=== PATIENT | male | born 1950 | race Caucasian/White ===

== ENCOUNTER → 2017-03-26 | Outpatient (CLI) | payer MEDICARE, OTHER ==
--- NOTE | 2017-03-26 12:04 | CARD ---
MR#: [id number] Date of Study: 03/26/2017 Ordering Physician: LISE SIFUENTES, Referring Physician: LISE SIFUENTES, Tech: Sanjay Le [facility] APPROVED REPORT EXAM: Two-dimensional and M-mode echocardiogram with Doppler and color Doppler. Other Information Quality : Good INDICATION Hypertension/HCVD 2D DIMENSIONS Left Atrium(2D)4.7 (1.6-4.0cm)IVSd1.5 (0.7-1.1cm) Aortic Root(2D)2.9 (2.0-3.7cm)LVDd4.9 (3.9-5.9cm) LVOT Diameter2.0 (1.8-2.4cm)PWd1.5 (0.7-1.1cm) LVDs3.3 (2.5-4.0cm)FS (%) 33.5 % SV71.1 mlLVEF(%)62.1 (>50%) Aortic Valve AoV Peak Gil.219.0cm/sAoV VTI46.8cm AO Peak GR.19.2mmHgLVOT Peak Gil.117.4cm/s LVOT VTI 28.08cmAO Mean GR.10mmHg TERRI (VMAX)1.16gz8KZG (VTI)1.81cm2 Mitral Valve MV E Jtoqslgq26.4cm/sMV DECEL YVCO527fr MV A Dxwfmhvf12.3cm/sE/A Ratio1.2 Tricuspid Valve TR P. Xplgfrca387js/sRAP FCCILCVP4nqXa TR Peak Gr.12xoWhNEZT53reFm LEFT VENTRICLE The left ventricle is normal size. There is moderate concentric left ventricular hypertrophy. Left ve ntricle systolic function is normal. The Ejection Fraction is 60-65%. There is normal LV segmental wa ll motion. Tissue Doppler imaging reveals abnormal left ventricular diastolic dysfunction. RIGHT VENTRICLE The right ventricle is normal size. The right ventricular systolic function is normal. ATRIA The left atrium is mild to moderately dilated. The right atrium size is normal. The interatrial septu m is intact with no evidence for an atrial septal defect or patent foramen ovale as noted on 2-D or D oppler imaging. AORTIC VALVE The aortic valve is mildly calcified. Doppler and Color Flow revealed no significant aortic regurgita tion. There is no significant aortic valvular stenosis. MITRAL VALVE The mitral valve is calcified but opens well. There is no evidence of mitral valve prolapse. There is no mitral valve stenosis. Doppler and Color-flow revealed mild mitral regurgitation. TRICUSPID VALVE The tricuspid valve is normal in structure and function. Doppler and Color Flow revealed mild tricusp id regurgitation. There is no pulmonary hypertension. The PA pressure was estimated at 28 mmHg. There is no tricuspid valve prolapse or vegetation. There is no tricuspid valve stenosis. PULMONIC VALVE Doppler and Color Flow revealed mild pulmonic valvular regurgitation. There is no pulmonic valvular s tenosis. GREAT VESSELS The aortic root is normal in size. The ascending aorta is normal in size. The IVC is normal in size a nd collapses >50% with inspiration. PERICARDIAL EFFUSION There is no pleural effusion. There is no evidence of significant pericardial effusion. Critical Notification Critical Value: No <Conclusion> Left ventricle systolic function is normal. The Ejection Fraction is 60-65%. There is normal LV segmental wall motion. Signed by : Sixto Alcantara, Electronically Approved : 03/26/2017 12:04:11
== END | disposition home or self-care (01) ==
LOC: ECHO 11:01
PROVIDERS: ATTEND Family Medicine
DX: I08.1 Rheumatic disorders of both mitral and tricuspid valves (principal)
CPT/HCPCS: 93306

== ENCOUNTER → 2018-04-07 | Outpatient (CLI) | payer MEDICARE, OTHER ==
--- NOTE | 2018-04-07 17:47 | RAD ---
Left lower extremity venous doppler ultrasound History: Left leg pain Comparison: None Findings: Multiple grayscale, color, and duplex spectral analysis sonographic images were acquired of the left lower extremity veins to evaluate for the presence of DVT. There is normal phasicity. Normal compression, color-flow, and augmentation is demonstrated from the left common femoral to the popliteal veins. There is normal color flow of the proximal greater saphenous vein. There is normal color flow of segments of the calf veins. Impression: 1. There is no evidence of deep venous thrombosis from the left common femoral to popliteal veins. Electronically signed by: Deshawn Gotti MD (04/07/2018 5:43 PM) [facility]
== END | disposition home or self-care (01) ==
LOC: DXRAD 17:06
PROVIDERS: ATTEND Family Medicine
DX: M79.662 Pain in left lower leg (principal)
CPT/HCPCS: 93971

== ENCOUNTER → 2018-10-31 | Outpatient (CLI) | payer MEDICARE, OTHER ==
--- NOTE | 2018-10-31 11:42 | RAD ---
EXAM: Abdomen sonogram. HISTORY: Elevated liver enzymes laboratory values. TECHNIQUE: Sonographic imaging of the abdomen was performed. COMPARISON: None. FINDINGS: The liver is normal in size. No focal hepatic lesion is seen. The gallbladder is unremarkable. The common bile duct is normal in caliber. The kidneys are normal in size. There is a 2.0 cm simple appearing left renal cyst. The pancreas is obscured due to bowel gas. The spleen, aorta and inferior cava are unremarkable IMPRESSION: 1. Small simple appearing left renal cyst. 2. Limited evaluation of the pancreas due to bowel gas. 3. Otherwise, unremarkable abdomen sonogram. Electronically signed by: Barbara Rincon MD (10/31/2018 11:39 AM) [facility]
== END | disposition home or self-care (01) ==
LOC: US 08:35
PROVIDERS: ATTEND Family Medicine
DX: N28.1 Cyst of kidney, acquired (principal)
CPT/HCPCS: 76700

== ENCOUNTER → 2019-04-23 | Outpatient (CLI) | payer MEDICARE, OTHER ==
--- NOTE | 2019-04-23 12:14 | RAD ---
DOPPLER CAROTID BILAT History: Stenosis Multiple grayscale, color, and duplex spectral analysis waveform sonographic images were acquired of the carotid, subclavian, and vertebral arteries. Comparison: None Findings: RIGHT SIDE: Peak systolic flow velocity of the distal CCA is 61 cm/sec. Peak systolic flow velocity of the ICA is 138 cm/sec. The ICA/CCA ratio is 1.9. Peak end diastolic flow velocity of the ICA is 43 cm/sec. The peak systolic velocity of the ECA is 72 cm/sec. Mild plaque formation is identified. LEFT SIDE: Peak systolic flow velocity of the distal CCA is 62 cm/sec. Peak systolic flow velocity of the ICA is 81 cm/sec. The ICA/CCA ratio is 1.3. Peak end diastolic flow velocity of the ICA is 23 cm/sec. Peak systolic flow velocity of the ECA is 81 cm/sec. Mild plaque formation is identified. Vertebral arteries: Right vertebral artery is not visualized. Left vertebral artery demonstrates antegrade flow. Impression: 1. Atherosclerosis of the internal carotid arteries with velocities consistent with 50-69% stenosis on the right and less than 50% stenosis on the left. 2. The right vertebral artery is not visualized, and could be hypoplastic or occluded. CTA or MRA could be obtained for further evaluation as clinically warranted. Patent left vertebral artery. PQRS Compliance Statement - Stenosis calculations for carotid ultrasound studies are derived from validated velocity criteria which are known to correlate with the NASCET methodology. Electronically signed by: Deshawn Johnson MD (04/23/2019 12:11 PM) [facility]
== END | disposition home or self-care (01) ==
LOC: US 10:41
PROVIDERS: ATTEND Family Medicine
DX: I65.23 Occlusion and stenosis of bilateral carotid arteries (principal)
CPT/HCPCS: 93880

== ENCOUNTER → 2020-01-01 | Outpatient (CLI) | payer MEDICARE, OTHER ==
--- NOTE | 2020-01-01 16:24 | RAD ---
3 view study of the right knee Clinical indications: Right knee pain. FINDINGS: No acute fracture or dislocation or lytic process is seen. There is moderate joint space narrowing and spurring of the medial tibiofemoral joint compartment with mild subchondral sclerosis. The patellofemoral joint compartment is unremarkable. Minimal right knee joint effusion is seen radiographically. In the lateral view, small punctate loose bodies are present within the posterior tibial femoral joint compartment. 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 Electronically signed by: Juan Davis MD (01/01/2020 4:22 PM) [id number]
== END | disposition home or self-care (01) ==
LOC: DXRAD 16:03
PROVIDERS: ATTEND Family Medicine
DX: M17.11 Unilateral primary osteoarthritis, right knee (principal); M25.461 Effusion, right knee; M76.9 Unspecified enthesopathy, lower limb, excluding foot
CPT/HCPCS: 73562

== ENCOUNTER 2020-10-16 16:15 | Emergency (ER) | payer MEDICARE, OTHER ==
[~2020-10-16] VITALS: Ht 177.8 cm; Wt 117.0 kg
[2020-10-16] MEDS ORDERED: NALOXONE 2 MG/2 ML DISP.SYRIN. IV ONE (16:30)
[2020-10-16] MEDS ORDERED: IV NORMAL SALINE 1,000ML 1,000 ML IV ONE (16:30)
--- NOTE | 2020-10-16 16:51 | PHYS DOC ---
Past History Additional Past Medical Histor: unknown (MEGHA COSTA DO) Past Surgical History: Other Additional Past Surgical Histo: unknown (MEGHA COSTA DO) General Adult EDM: Chief Complaint: Respiratory distress HPI: HPI: 69-year-old male presents via EMS for drug overdose. The entire history is provided by EMS because the patient will answer my questions. The patient was reported to be "out of it" all day at home. He started Zanaflex last night for a torn meniscus. EMS arrived and the patient was unresponsive but breathing. They gave him 2 mg of Narcan and he seemed to react. On arrival to the emergency room he does not answer questions. He will arouse to sternal rub. (MEGHA COSTA DO) Review of Systems: Review of Systems: Unable to perform due to patient condition (MEGHA COSTA DO) Current Medications: Current Meds: Current Medications Medications (Trade) Dose Ordered Sig/Rob Start Time Stop Time Status Last Admin Dose Admin Naloxone HCl (Narcan) 2 mg 1X ONCE 10/16/20 16:30 10/16/20 16:31 UNV Sodium Chloride 1,000 ml @ 1,000 mls/hr 1X ONCE 10/16/20 16:30 10/16/20 17:29 UNV 10/16/20 16:30 1,000 MLS/HR (MEGHA COSTA DO) Physical Exam: PE: Constitutional: Well developed, well nourished, morbidly obese, mild acute distress. [] HENT: Normocephalic, atraumatic, bilateral external ears normal, oropharynx moist, no oral exudates, nose normal. [] Eyes: PERRLA, EOMI, conjunctiva normal, no discharge. [] Neck: Normal range of motion, no tenderness, supple, no stridor. [] Cardiovascular: Heart rate 96, regular rhythm, no murmur [] Lungs & Thorax: Bilateral crackles throughout [] Abdomen: Bowel sounds normal, distended but pliable, no tenderness, no masses, no pulsatile masses. [] Skin: Warm, dry, no erythema, no rash. [] Back: No tenderness, no CVA tenderness. [] Extremities: No tenderness, no cyanosis, no clubbing, ROM intact, no edema. [] Neurologic: Arousable to sternal rub. [] Psychologic: Unable to assess [] (MEGHA COSTA DO) Current Patient Data: Vital Signs: Vital Signs Date Time Temp Pulse Resp B/P (MAP) Pulse Ox O2 Delivery O2 Flow Rate FiO2 10/16/20 16:21 124 30 96/55 94 Room Air (MEGHA COSTA DO) EKG: EKG: Irregular rhythm, rate 120, normal axis, no ST elevation or depression, A. fib. [] (MEGHA COSTA DO) Radiology/Procedures: Radiology/Procedures: [] Impressions: EXAM: XR CHEST 1V 10/16/2020 4:29 PM CLINICAL INDICATION: Crackles COMPARISON: None TECHNIQUE: AP view the chest FINDINGS: The cardiac silhouette is prominent. Lungs are hypoexpanded. There are bilateral interstitial and alveolar opacities. No pleural effusion or pneumothorax. IMPRESSION: Cardiomegaly and probable mild pulmonary edema. Electronically signed by: Flores Baez MD (10/16/2020 5:09 PM) [id number] DICTATED AND SIGNED BY: FLORES BAEZ MD DATE: 10/16/20 1708 CC: LISE SIFUENTES MD; MEGHA COSTA DO ~MTH0 0 (MEGHA COSTA DO) Heart Score: C/O Chest Pain: N/A Risk Factors: Risk Factors: DM, Current or recent (<one month) smoker, HTN, HLP, family history of CAD, obesity. Risk Scores: Score 0 - 3: 2.5% MACE over next 6 weeks - Discharge Home Score 4 - 6: 20.3% MACE over next 6 weeks - Admit for Clinical Observation Score 7 - 10: 72.7% MACE over next 6 weeks - Early Invasive Strategies (MEGHA CSOTA DO) Course & Med Decision Making: Course & Med Decision Making Pertinent Labs and Imaging studies reviewed. (See chart for details) The patient would barely wake up to verbal stimuli. He would arouse to sternal rub but would not be awake enough to answer any questions. We given 2 more milligrams of Narcan with no real effect. Chest x-ray is concerning for fluid overload and pneumonia. This could be COVID-19. I have ordered 40 of Lasix, a gram of Rocephin, 500 of azithromycin IV. We have sent lactic acid and blood cultures. While the patient is maintaining good saturations with 2 L nasal cannula, given the look of his lungs and respirations we will place him on BiPAP. Ba has been inserted. Fingerstick blood sugar 250. The patient's EKG shows atrial fibrillation at a rate of 120. I will try 10 mg of Cardizem IV to see if this improves his heart rate. I am hesitant to be any more aggressive due to his low blood pressure. Normalizing his heart rate may help with his pressure. He is also getting a liter of fluid and likely more given the dark color of his urine. I am signing the patient out to Dr. Yeung at 1800. [] (MEGHA COSTA DO) Course & Med Decision Making Patient care handed off to me at checkout. Patient critically ill with altered mental status and GCS 12 with some confusion, NIH hard to obtain but does not seem to want to move his left leg. Patient definitely has some confusion as at times he can remember his but other times he cannot. Vital signs notable for A. fib RVR running anywhere from 100-130 however pressures with maps in the 50s. Patient started on some light pressure support with low-dose epinephrine to give cardiac output support and help with perfusion, with no phenylephrine available. Patient also started on BiPAP trial given patient's tachypnea and coarse breath sounds with some mild pulmonary edema on imaging. After some time with epinephrine, small fluid bolus and CPAP patient was able to be weaned from CPAP back down to nasal cannula to liters and epinephrine turned off for a trial. Patient maintained maps in the 70s with heart rate around 110, 96% on 2 L breathing about 25 times a minute. Mentation slightly improved with patient being a little more alert but still has some confusion and GCS 12. Given patient's elevated white count, elevated lactate and bands on laboratory analysis, cultures were obtained and given broad-spectrum antibiotics concerning for cocommitment sepsis. Urinalysis brown and cloudy with many bacteria but hard to analyze which could be a potential source of infection. Patient critically ill with multiorgan system dysfunction given altered mental status and probable neurologic deficit, elevated troponin and apparent decrease in cardiac output and edema, elevated creatinine and brown urine, elevated LFTs and probable sepsis/infection. Discussed all findings with family and recommended admission to NICU. [facility] in [place] with no ICU beds. Tried [facility], [facility] and [facility] who were also out of ICU beds. Dr. Dickson at accepted. Critical care time 60 minutes (ISI YEUNG MD) Dragon Disclaimer: Dragon Disclaimer: This electronic medical record was generated, in whole or in part, using a voice recognition dictation system. (MEGHA COSTA DO) Departure Departure: Impression: Primary Impression: Pulmonary edema Qualified Codes: J81.0 - Acute pulmonary edema Additional Impressions: AMS (altered mental status) Qualified Codes: R40.0 - Somnolence Atrial fibrillation Qualified Codes: I48.91 - Unspecified atrial fibrillation Condition: GUARDED Referrals: LISE SIFUENTES MD (PCP) MEGHA COSTA DO Oct 16, 2020 16:51 ISI YEUNG MD Oct 16, 2020 22:17
--- NOTE | 2020-10-16 17:11 | RAD ---
EXAM: XR CHEST 1V 10/16/2020 4:29 PM CLINICAL INDICATION: Crackles COMPARISON: None TECHNIQUE: AP view the chest FINDINGS: The cardiac silhouette is prominent. Lungs are hypoexpanded. There are bilateral interstit ial and alveolar opacities. No pleural effusion or pneumothorax. IMPRESSION: Cardiomegaly and probable mild pulmonary edema. Electronically signed by: Flores Baez MD (10/16/2020 5:09 PM) [id number]
[2020-10-16] MEDS ORDERED: AZITHROMYCIN 500 MG in IV NORMAL SALINE 250ML 250 ML IV ONE (17:15)
[2020-10-16] MEDS ORDERED: IOHEXOL 350 MG/ML 100 ML VIAL. IV ONE (17:15)
[2020-10-16] MEDS ORDERED: IPRATRPIUM/ALBUTEROL 0.5/2.5MG 3 ML NEBU. NEB ONE (17:15)
[2020-10-16] MEDS ORDERED: FUROSEMIDE 40 MG/4 ML VIAL IVP ONE (17:15)
[2020-10-16] MEDS ORDERED: IV NORMAL SALINE 250ML 250 ML ONE (17:26)
[2020-10-16] MEDS ORDERED: IV NORMAL SALINE 50ML 50 ML ONE (17:26)
[2020-10-16] MEDS ORDERED: cefTRIAXone SODIUM 1 GM VIAL ONE (17:27)
[2020-10-16] MEDS ORDERED: AZITHROMYCIN 500 MG VIAL. IV ONE (17:27)
[2020-10-16] MEDS ORDERED: CONTRAST GIVEN. MC PRN (17:30)
[2020-10-16 17:58] LABS: BASO % 0 % (0-3); EOS % 0 % (0-3); HEMOGLOBIN 13.8 g/dL (13.0-17.5); LYMPH # 0.4 x10^3/uL (1.0-4.8); LYMPH % 2 % (24-48); MEAN CORPUSCULAR HEMOGLOBIN 32 pg (25-35); MEAN CORPUSCULAR HGB CONC 34 g/dL (31-37); MEAN CORPUSCULAR VOLUME 95 fL (79-100); MONO # 1.6 x10^3/uL (0.0-1.1); MONO % 9 % (0-9); NEUT # 15.6 x10^3uL (1.8-7.7); NEUT % 89 % (31-73); PLATELET COUNT 138 x10^3/uL (140-400); RED BLOOD COUNT 4.31 x10^6/uL (4.30-5.70); RED CELL DISTRIBUTION WIDTH 13.4 % (11.5-14.5); WHITE BLOOD COUNT 17.6 x10^3/uL (4.0-11.0)
--- NOTE | 2020-10-16 18:03 | EKG ---
[address] [address] Test Date: 2020-10-16 Test Time: 17:47:43 Pat Name: ANASTASIIA CEJA Department: Room: Gender: M [employer]: NICHOLAS : 1950 Requested By: MEGHA COSTA Order Number: [id number] Reading MD: Measurements Intervals [place] Rate: 120 P: MO: QRS: 4 QRSD: 100 T: 136 QT: 342 QTc: 489 Interpretive Statements IRREGULAR RHYTHM, NO P-WAVE FOUND ST & T ABNORMALITY, CONSIDER HIGH LATERAL ISCHEMIA OR LEFT VENTRICULAR STRAIN ABNORMAL ECG RI6.02 No previous ECG available for comparison
[2020-10-16 18:04] LABS: BARBITURATES NEG (NEG); BENZODIAZEPINES NEG (NEG); CANNABINOIDS NEG (NEG); COCAINE NEG (NEG); METHADONE NEG (NEG); OPIATES NEG (NEG); PHENCYCLIDINE NEG (NEG)
[2020-10-16 18:06] LABS: AMPHETAMINE/METHAMPHETAMINE NEG (NEG)
[2020-10-16 18:19] LABS: CALCIUM 8.6 mg/dL (8.5-10.1); CREATININE 2.8 mg/dL (0.7-1.3); GFR 22.6
[2020-10-16 18:24] LABS: ACETAMIN 3.3 mcg/mL (10-30); SALIC < 2.8 mg/dL (2.8-20.0)
[2020-10-16] MEDS ORDERED: dilTIAZem 25 MG/5 ML VIAL IVP ONE (18:30)
[2020-10-16 18:31] LABS: BACTERIA,URINE MOD /HPF (0-FEW); CLARITY,URINE CLOUDY; COLOR,URINE BROWN; RBC,URINE >40 /HPF (0-2); SQUAMOUS EPITHELIAL CELL,UR FEW /LPF
[2020-10-16] MEDS ORDERED: LOSA25TA11 PO (18:33)
[2020-10-16 18:34] LABS: ALBUMIN 2.2 g/dL (3.4-5.0); ALBUMIN/GLOBULIN RATIO 0.6 (1.0-1.7); TOTAL BILIRUBIN 1.2 mg/dL (0.2-1.0); TOTAL PROTEIN 6.2 g/dL (6.4-8.2)
[2020-10-16] MEDS ORDERED: TAMS0.4C97 PO (18:34)
[2020-10-16] MEDS ORDERED: SIMV10TA15 PO (18:34)
[2020-10-16 18:41] LABS: BGAS PH 7.38 (7.35-7.46)
[2020-10-16] MEDS ORDERED: EPINEPHrine 5 MG in IV NORMAL SALINE 250ML 250 ML IV PRN (18:45)
--- NOTE | 2020-10-16 19:47 | RAD ---
CTA CHEST_ABDOMEN_AND PELVIS dated 10/16/2020 6:39 PM Indication:Reason: rule out PE, AMS, tachycardia / Spl. Instructions: OMNI 350 100ML IV OKED BY Jerilyn CHRISTINE / History: Comparison: No comparison is available. Technique: Helical thin section CT images were performed. 100 mL Omnipaque 350 was used. MIP reconstr uctions were performed. One or more of the following individualized dose reduction techniques were utilized for this examinat ion: 1. Automated exposure control 2. Adjustment of the mA and/or kV according to patient size 3. Use of iterative reconstruction technique Findings: There is mild dependent atelectasis. The lungs otherwise are clear. There is mild respiratory motion artifact. The central airways show no obstruction. No enlarged lymph nodes are seen. The thoracic aor ta is normal in caliber, without evidence of dissection. Evaluation of the pulmonary arterial tree shows moderate opacification of the vessels. No abnormal fi lling defect is seen extending to the subsegmental branch level. Evaluation of the lung bases is slig htly limited by motion artifact. Images through the upper abdomen show no acute abnormality. IMPRESSION: No evidence of pulmonary embolism or other acute abnormality. Electronically signed by: Dedrick Harrell Jr., MD (10/16/2020 7:45 PM) [facility]ENTER[facility]
--- NOTE | 2020-10-16 19:51 | RAD ---
CT HEAD/BRAIN WO dated 10/16/2020 6:39 PM. Comparison: None. Clinical Indication: Reason: AMS / Spl. Instructions: / History: Technical factors: Contiguous 5 mm axial images of the head were obtained from the skullbase to the vertex. No contrast was administered. Findings: No intracranial hemorrhage or abnormal extra-axial fluid collection is seen. There is an area of low attenuation in the right frontal lobe extending to the cortex likely indicating chronic infarct. Ther e may be a small area of previous infarct in the left posterior parietal region. An additional area o f abnormal density is seen in the right occipital lobe. This also is likely from ischemia, although i s more indeterminate in age. Low-density in the right temporal lobe is favored to be chronic. No othe r region of abnormal density is seen. The ventricles and basilar cisterns are normally positioned. Hi gh density near the foramen of [place] may indicate a small colloid cyst. The sinuses and mastoid air cells are clear. Note is made of some air within the deep facial structures adjacent to the pterygoid muscles and also in the cheeks anteriorly. Tiny amount of air is also seen in the region of the cave rnous sinus. There is no apparent skull fracture. Impression: Several areas of abnormal low density are seen in the brain. Most of these are probably chronic, alth ough right occipital abnormality is more indeterminate (possibly subacute, but not likely acute). No hemorrhage is seen. There is some air within the face uncertain etiology. Correlation with procedure in the neck or face is recommended. Electronically signed by: Dedrick Harrell Jr., MD (10/16/2020 7:49 PM) [facility]
[2020-10-16 20:15] LABS: % BANDS 20 % (0-9); % LYMPHS 1 % (24-48); % METAS 1 % (0-0); % MONOS 7 % (0-10); % SEGS 71 % (35-66)
[2020-10-16 20:17] LABS: PLT ESTIMATE ADEQUATE (ADEQUATE); TOXIC VACUOLATION PRESENT
[2020-10-16] MEDS ORDERED: RINGERS LACTATED IV ONE (21:30)
[2020-10-16] MEDS ORDERED: IV RINGERS SOLUTION,LACTATED 1,000 ML IV ONE (23:45)
[2020-10-17 00:23] VITALS: BP 116/58
== END 2020-10-17 00:35 | disposition short-term general hospital (02) ==
LOC: ER 16:15
DX: J81.0 Acute pulmonary edema (principal); R41.82 Altered mental status, unspecified; I48.91 Unspecified atrial fibrillation; E66.01 Morbid (severe) obesity due to excess calories; Z20.822 Contact with and (suspected) exposure to COVID-19; Z68.37 Body mass index [BMI] 37.0-37.9, adult
CPT/HCPCS: 36415; 36600; 51702; 70450; 71045; 71275; 74177; 80053; 80307; 80329; 81001; 82803; 82947; 83605; 83880; 84484; 85007; 85025; 87040; 87086; 93005; 94640; 94660; 96361; 96365; 96375; 99291; C9803; J0456; J0696; J1940; J2310; J7030; J7050; J7120; U0003; 87205; G0480